=== PATIENT | female | born 1955 | race Caucasian/White ===

== ENCOUNTER 2017-09-30 15:28 | Emergency (ER) | payer OTHER ==
[~2017-09-30] VITALS: Ht 165.1 cm; Wt 142.4 kg
[~2017-09-30 15:28] MED LIST: ADA30 PO; AMLODIPINE BESY10 M1 PO; ANT12.5 PO; APAP/HYDROCODON1 T13 PO; ASPIR 8181 MG PO; BACTRIM DS1 TAB PO; CAR1 PO; CARVEDILOL6.25 M1 PO; CEPHALEXIN500 MG PO; CLINDAMYCIN HC300 MG PO; COL100 PO; CORE25 PO; ENALAPRIL MALEA10 MG PO; ENALAPRIL MALEA20 MG PO; GLIPIZIDE5 MG PO; GLU10 PO; GLUCOTROL5 MG PO; KEFLEX750 MG PO; L40 PO; LAC PO; LANTI SQ; LASIX40 MG PO; LEVEMIR100 U/M1 SQ; LEVOFLOXACIN500 M1 PO; LEVOFLOXACIN750 M1 PO; LEVOTHYROXINE0.05 M2 PO; METFORMIN HCL1000 MG PO; MOTRIN800 MG PO; NORCO1 TA2 PO; ONDANSETRON ODT8 M1 PO; PENTOXIFYLLINE400 MG PO; PRI20 PO; REGLAN10 MG PO; SIMVASTATIN40 M1 PO; SYN5 PO; V10 PO; ZOC20 PO; [UNRECOGNIZED DRUG - CODE] TOP
[2017-09-30 15:59] VITALS: Ht 165.1 cm; Wt 142.4 kg
[2017-09-30 19:01] LABS: BASOPHIL % 0.5 % (0-2); PLATELET COUNT 269 x10^3mcL (130-400)
[2017-09-30 19:10] LABS: CALCIUM 8.7 mg/dL (8.5-10.1); CHLORIDE SERUM 104 mmol/L (98-107); CREATININE SERUM 0.9 mg/dL (0.6-1.0); GFR1 > 60 mL/min; GLUCOSE SERUM 221 mg/dL (74-106); POTASSIUM SERUM 3.7 mmol/L (3.5-5.1); SODIUM SERUM 141 mmol/L (136-145)
[2017-09-30 19:14] LABS: ALKALINE PHOSPHATASE 82 U/L (46-116); ALT/SGPT 22 U/L (14-59); AST/SGOT 16 U/L (15-37); LIPASE 62 IU/L (73-393); TOTAL PROTEIN, SERUM 7.8 g/dL (6.4-8.2)
[2017-09-30 19:15] LABS: ALBUMIN 3.3 g/dL (3.4-5.0); AMYLASE 22 U/L (25-115)
[2017-09-30 22:57] VITALS: BP 178/92
== END 2017-09-30 22:57 | disposition home or self-care (01) ==
LOC: ED 15:28
PROVIDERS: Emergency Medicine
DX: K59.00 Constipation, unspecified (principal); E78.00 Pure hypercholesterolemia, unspecified; I10 Essential (primary) hypertension; E11.9 Type 2 diabetes mellitus without complications; Z79.84 Long term (current) use of oral hypoglycemic drugs; Z79.899 Other long term (current) drug therapy; Z91.013 Allergy to seafood
CPT/HCPCS: 36415; 83880; J1885